=== PATIENT | male | born 1990 | race Caucasian/White ===

== ENCOUNTER 2019-01-01 12:51 | Emergency (ER) | payer MEDICAID ==
[~2019-01-01] VITALS: Ht 177.8 cm; Wt 72.7 kg
[2019-01-01] MEDS ORDERED: LEVE250T55 PO (13:09)
[2019-01-01] MEDS: ONDANSETRON HCL 4 MG TABLET PO ONE (19:15)
[2019-01-01 20:19] VITALS: BP 132/74
== END 2019-01-01 20:21 | disposition home or self-care (01) ==
LOC: EMS 12:56
DX: R09.1 Pleurisy (principal); F11.23 Opioid dependence with withdrawal; F32.9 Major depressive disorder, single episode, unspecified; F41.9 Anxiety disorder, unspecified; F12.90 Cannabis use, unspecified, uncomplicated; F17.210 Nicotine dependence, cigarettes, uncomplicated
CPT/HCPCS: 36415; 71101; 85379; 99284; Q0162